=== PATIENT | female | born 1960 | race African-American/Black ===

== ENCOUNTER → 2017-11-01 | Outpatient (CLI) | payer BC ==
[~2017-11-01] VITALS: Ht 170.2 cm; Wt 88.5 kg
[~2017-11-01] MED LIST: ALLOPURINOL 10100 M1 PO; AMITRIPTYLINE H10 M3 PO; BUTALB-APAP-CA1 EACH PO; BYSTOLIC 5 MG5 M1; CARVEDILOL3.125 MG PO; COLACE100 MG PO; COZAAR100 MG PO; FELODIPINE 5 MG5 M1 PO; HYDRALAZINE 10M10 MG PO; HYDROCHLOROTH12.5 M1 PO; HYDROXYZINE HCL25 M1 PO; KEPPRA1000 MG PO; LIORESAL 10 MG10 MG PO; LIPITOR 20 MG T20 M1 PO; LOSARTAN-HCTZ1 EAC1 PO; NEURONTIN 300300 M1 PO; POLYETHYLENE G255 G1 PO; PROTONIX40 M1 PO
--- NOTE | ~2017-11-01 | HPC ---
[facility] [address] [place] [address] PAIN MANAGEMENT CONSULTATION Name: BRADY MANTILLA Room #: REG SERA Epperson.#: [id number] Admission: 11/01/17 Attend Phys: Lynda Chang MD Discharge: Date of : 62 Report #: [id number] THIS REPORT FOR: //name// CC: Karina Chang DATE OF SERVICE: 11/01/2017 CHIEF COMPLAINT: Complex regional pain syndrome. HISTORY OF PRESENT ILLNESS: The patient is a 57-year-old female who has been referred to the pain clinic because of chronic pain and discomfort. States that she is having pain and discomfort, which radiates down into her ankles, legs and arms. Notes that the pain is made worse at bedtime. It is not sure that anything makes it better. Describes it as steady, burning, shooting, aching and sharp. Rates it as a 6/10 on most days. The patient states that she was found to have an aneurysm. A coil was placed in the area of aneurysm. She states that she has been having some numbness around her mouth since the aneurysm treatment. She is having difficult with activities of daily living. 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 At this juncture, she has been required to go into work to be observed. She states that the RSD as a result of pain from the ACL repair. This was in 2000. The irritating agent nd was removed from her knee. Her knee remains somewhat unstable. ALLERGIES: No known drug allergies. MEDICATIONS: Hyzaar 100/25 one daily, allopurinol 100 mg, Lipitor 20 mg, Coreg 3.125 mg b.i.d., gabapentin 300 mg t.i.d. and hydroxyzine 25 mg b.i.d. PAST MEDICAL HISTORY: Hypertension, reflex sympathetic dystrophy after ACL repair in 2010, brain aneurysm status post coiling, right groin pain since the coil procedure pain in the legs and arms, and stroke, migraine headaches, bilateral carpal tunnel syndrome, hyperuricemia, insomnia and anxiety. PAST SURGICAL HISTORY: ACL repair in 2000, hysterectomy 2000, coil procedure 2017, left shoulder SLAP repair. REVIEW OF SYSTEMS: Fatigue, weakness, wears glasses, sore throat, voice changes, shortness of breath, shortness of breath while lying flat, constipation, abdominal pain, frequent urination, awakens to urinate at night, sexual difficulty, changes in skin color, change in hair and nails, lightheadedness, dizziness, numbness and tingling sensation, stroke, head injury, memory loss/confusion, nervousness, cold intolerance, easy bruisability. PAIN CLINIC ASSESSMENT: [place] [address] PAIN MANAGEMENT CONSULTATION Name: BRADY MANTILLA Room #: REG CLMagda Childs#: [id number] Admission: 11/01/17 Attend Phys: Lynda Chang MD Discharge: Date of : 62 Report #: [id number] 1. History of osteoarthritis, left upper extremity, right upper extremity, ACL repair, left knee. 2. Height 5 feet 7 inches, weight 195 pounds and BMI is 30. 3. Vital signs: Blood pressure 165/105, pulse 77, respiratory rate 16 and room air saturation 100%. 3. Pain intensity 10. 4. Fall risk. The patient has not fallen in the last 3 months. 5. Blood thinner. The patient is not on a blood thinning medication. 6. History of hypertension. The patient is being treated for hypertension. 7. Opioid therapy greater than 6 weeks. The patient is not on opioid meds regimen. 8. Risk assessment tool 0/low. 9. Functional assessment tool 53/70. 10. Recreational drug use. The patient has never used recreational drugs. 11. Tobacco: The patient has never smoked. 12. Alcohol: The patient denies use of alcoholic beverages. PHYSICAL EXAMINATION: GENERAL: The patient is a well-developed black female, appears her stated age. She is alert and oriented x 3. Affect is appropriate. Speech is somewhat slow, but fluent. HEENT: Normocephalic, atraumatic. Extraocular eye muscles intact. Sclerae nonicteric. Hearing within normal limits. Mucous membranes are moist. NECK: Without adenopathy or JVD. No bruits appreciated. Good range of motion. HEART: Regular rate with S1, S2. LUNGS: Clear to auscultation. ABDOMEN: Nontender. EXTREMITIES: Upper extremity muscle strength judged to be generally 5/5 with window glass cutter off strength. MUSCULOSKELETAL: Without significant scoliosis, kyphosis or lordosis. Lower extremity muscle strength is judged to be 5/5 for the major muscle groups. The patient does complain of some burning, shooting, aching discomfort in the lower extremities of her anterior and posterior portion of her legs as well as numbness and tingling sensation in the anterior chest area, posterior arms and anterior portion of her arms. Notes pain and discomfort in the ankles. IMPRESSION: 1. Chronic pain status post aneurysm on 07/27/2017. 2. Hypertension. 3. Reflex sympathetic dystrophy after ACL repair in 2010. 4. Brain aneurysm status post coiling. 5. Right groin pain since the coil procedure, pain in the legs and arms. 6. Stroke. 7. Migraine headaches. 8. Bilateral carpal tunnel syndrome. 9. Hyperuricemia. [facility] [place] [address] PAIN MANAGEMENT CONSULTATION Name: BRADY MANTILLA Room #: REG SERA GómezTomJosetteTom#: [id number] Admission: 11/01/17 Attend Phys: Lynda Chang MD Discharge: Date of : 62 Report #: [id number] 10. Insomnia. 11. Anxiety. RECOMMENDATIONS: We discussed treatment options with the patient. At this juncture, I think it would be reasonable to try amitriptyline. The patient is having some burning pain, some shooting pain and Elavil is oftentimes a good medication for this. We have discussed the possible complications of using this medication, which could be somewhat increased sedation as well as dry mouth. We will proceed with the Elavil. We will start out at a low dose and increase this as the patient is able to tolerate it. Hopefully, she will find that this medication is beneficial and will decrease some of symptomatology that she is experiencing. She will follow up in the future. She will call us if she has any concerns. By: [id number] Lynda Chang MD /nt
[2017-11-01 14:12] VITALS: BP 165/105
== END ==
LOC: PAIN 07:09
DX: I10 Essential (primary) hypertension (principal); G90.523 Complex regional pain syndrome I of lower limb, bilateral; I63.9 Cerebral infarction, unspecified; G43.909 Migraine, unspecified, not intractable, without status migrainosus; G56.03 Carpal tunnel syndrome, bilateral upper limbs; E79.0 Hyperuricemia without signs of inflammatory arthritis and tophaceous disease; M25.551 Pain in right hip